=== PATIENT | female | born 1980 | race Hispanic/Latino ===

== ENCOUNTER 2017-12-13 14:24 | Emergency (ER) | payer BC ==
[~2017-12-13 14:24] MED LIST: QUET25TA74 PO
[2017-12-13] MEDS ORDERED: KETOROLAC TROMETHAMINE 15MG/ML ONE ×2 (14:44→15:43)
[2017-12-13] MEDS ORDERED: DIAZEPAM 5 MG TABLET ONE ×2 (14:44→15:43)
[2017-12-13] MEDS ORDERED: LIDOCAINE 5% TOPICAL PATCH TP ONE (14:44)
== END 2017-12-13 16:24 | disposition home or self-care (01) ==
LOC: EDH 14:24
DX: M62.830 Muscle spasm of back (principal)
CPT/HCPCS: 96374; 96376; 99284; J1885 ×2